=== PATIENT | female | born 1935 | race Caucasian/White ===

== ENCOUNTER 2016-07-09 14:35 | Emergency (ER) | payer OTHER ==
[~2016-07-09 14:35] MED LIST: ACET500CAP PO; ALIGN4 MG PO; AMIT50 PO; APRES25 PO; ARICEPT10 PO; ASAB PO; BENICAR40 PO; CEFT5 PO; CONSTULOSE PO; COZAAR100 MG PO; CYANO1000T PO; DRAMAMINE25 MG PO; DSS PO; FLEXERIL5 MG PO; FLONASE NAS; FLORASTOR250 MG PO; FOSAMAX70 MG PO; HALF81 PO; IMDUR30 PO; L20 PO; LANTUS SC; LANTUSCART SC; LEVEMIR SC; LEVOTHYROXIN25 MCG PO; LOP25 PO; MCZ125 PO; MCZ25 PO; MIRALAXPKT PO; NEUR600 PO; NORV5 PO; NOVOLOG SC; NOVOPEN SC; OMNICEF300 PO; OS500+D PO; P1 PO; P10 PO; PRAV10 PO; PRILO PO; PROTONIX PO; REFRESH OPH SO0.3 ML OPH; SYN.025B PO; SYSTANE OPH; TRAZ50 PO; TYLENOL ARTH650 MG PO; ULTRAM50 PO; VITAMIN D1000 UNI1 PO; VITAMIN D31000 UNIT PO; VITAMIN D400 UNI1 PO; X5 PO; Z-PAK PO; ZOFRAN4 PO; ZOLOFT25 MG PO
[2016-07-09 15:37] LABS: BASOPHILS 0.4 %; BASOPHILS ABSOLUTE 0.03 10/3/uL (0.0-0.16); EOSINOPHILS 0.6 %; EOSINOPHILS ABSOLUTE 0.05 10/3/uL (0.0-0.53); ER CBC TAT 0 Hrs 05 Mins; HEMATOCRIT 32.4 % (36.0-48.0); HEMOGLOBIN 10.9 g/dL (12.0-16.0); IMMATURE GRANULOCYTES 0.2 %; IMMATURE GRANULOCYTES ABSOLUTE 0.02 10/3/uL (0.0-0.11); LYMPHOCYTES 19.8 %; LYMPHOCYTES ABSOLUTE 1.68 10/3/uL (0.67-4.30); MEAN CORPUS HGB CONC 33.6 g/dL (32.0-36.0); MEAN CORPUSCULAR HEMOGLOB 28.2 pg (26.0-34.0); MEAN PLATELET VOLUME 9.9 fL (9.2-13.0); MONOCYTES 7.5 %; MONOCYTES ABSOLUTE 0.64 10/3/uL (0.21-1.20); NEUTROPHILS 71.5 %; NEUTROPHILS ABSOLUTE 6.07 10/3/uL (2.02-8.40); PLATELET COUNT 198 10/3/uL (150-400); RBC DISTRIBUTION WIDTH 13.8 % (12.0-16.0); RED CELL COUNT 3.86 10/6/uL (4.0-5.6); WHITE BLOOD CELLS 8.5 10/3/uL (4.5-10.5)
[2016-07-09 15:39] LABS: MANUAL DIFF NO %; MEAN CORPUSCULAR VOLUME 83.9 fL (80-100)
[2016-07-09 15:50] LABS: ASCORBIC ACID (UR NOT ORDER) NEG (NEG); BILIRUBIN, URINE NEGATIVE (NEG); ER URINALYSIS TAT 0 Hrs 18 Mins; KETONE, URINE TRACE MG/DL (NEG); LEUKOCYTE ESTERASE(NOT OR NEG (NEG); NITRITE (URINE) NEG (NEG); WBC (NOT ORDERED) (RFLEX) 1 (0-5)
[2016-07-09 15:53] LABS: BUN (BLOOD UREA NITROGEN) 16 MG/DL (6-23); CALCIUM, SERUM 8.4 MG/DL (8.5-10.4); CHLORIDE, SERUM 109 MMOL/L (96-112); CO2 (CARBON DIOXIDE) 26 MMOL/L (24-34); CREATININE 0.86 MG/DL (0.55-1.02); GFR AFRICAN AMERICAN 73 ML/MIN (>=60); GFR NON AFRICAN AMERICAN 63 ML/MIN (>=60); GLUCOSE, SERUM 96 MG/DL (60-99); POTASSIUM, SERUM 3.5 MMOL/L (3.5-5.3); SODIUM, SERUM 144 MMOL/L (135-148); TROPONIN I <0.02 NG/ML (<0.05)
[2016-07-09] MEDS ORDERED: LANTUS SC (17:43)
[2016-07-09] MEDS ORDERED: NOVOLOG SC (17:44)
[2016-07-09] MEDS ORDERED: NORV5 PO (17:44)
[2016-07-09] MEDS ORDERED: VITAMIN D31000 UNIT PO (17:45)
[2016-07-09] MEDS ORDERED: ZOLOFT25 MG PO (17:45)
[2016-07-09] MEDS ORDERED: ASAB PO (17:46)
[2016-07-09] MEDS ORDERED: COZAAR100 MG PO (17:46)
[2016-07-09] MEDS ORDERED: DSS PO (17:46)
[2016-07-09] MEDS ORDERED: VITAMIN B-121000 MC1 PO (17:47)
[2016-07-09] MEDS ORDERED: NEUR600 PO (17:47)
[2016-07-09] MEDS ORDERED: PROTONIX PO (17:48)
[2016-07-09] MEDS ORDERED: PRAV10 PO (17:48)
[2016-07-09] MEDS ORDERED: OS500+D PO (17:49)
[2016-07-09] MEDS ORDERED: TRAZ50 PO (17:49)
[2016-07-09] MEDS ORDERED: MCZ25 PO (17:50)
[2016-07-09] MEDS ORDERED: ULTRAM50 PO (17:51)
[2016-07-09] MEDS ORDERED: LOP25 PO (17:51)
[2016-07-09] MEDS ORDERED: FOSAMAX70 MG PO (17:51)
[2016-07-09] MEDS ORDERED: APRES25 PO (17:54)
[2016-07-09] MEDS ORDERED: X5 PO (17:55)
== END 2016-07-09 20:08 | disposition home or self-care (01) ==
LOC: ER 14:35
PROVIDERS: Nurse Practitioner Family
DX: R10.9 Unspecified abdominal pain (principal); M54.5 Low back pain; E11.9 Type 2 diabetes mellitus without complications; F32.9 Major depressive disorder, single episode, unspecified; F41.9 Anxiety disorder, unspecified; I10 Essential (primary) hypertension; F03.90 Unspecified dementia, unspecified severity, without behavioral disturbance, psychotic disturbance, mood disturbance, and anxiety; Z86.73 Personal history of transient ischemic attack (TIA), and cerebral infarction without residual deficits; Z87.442 Personal history of urinary calculi; Z88.2 Allergy status to sulfonamides; Z88.8 Allergy status to other drugs, medicaments and biological substances; Z79.899 Other long term (current) drug therapy; Z79.82 Long term (current) use of aspirin; Z79.4 Long term (current) use of insulin
CPT/HCPCS: 71010; 74176; 80048; 81001; 84484; 85025; 93005; 96374; 96375; 99285; J2405